=== PATIENT | male | born 1960 | race Caucasian/White ===

== ENCOUNTER 2024-08-27 08:45 | Inpatient (IN) | payer BC, MEDICAID, MEDICARE ==
[~2024-08-27] VITALS: Ht 180.3 cm; Wt 85.7 kg
[2024-08-27] VITALS (11 sets, daily range): BP systolic 122–134; BP diastolic 41–66; PULSE 36–98; RESP 18–28; TEMP 37.05852; O2SAT 98–100
[2024-08-27] MEDS ORDERED: FENTANYL 2500MCG/250ML PMX 250 ML IV ONE (09:00)
[2024-08-27] MEDS ORDERED: VANCOMYCIN 1000MG/250ML 250 ML IV SCH ×2 (09:00)
[2024-08-27] MEDS ORDERED: MIDAZOLAM 100MG/100ML PMX 100 ML IV PRN (09:00)
[2024-08-27] MEDS ORDERED: CEFEPIME 2GM IN DEXT 5% 100ML IV ONE (09:00)
[2024-08-27] MEDS: CEFEPIME 2GM/50ML DUPLEX 50 ML IV SCH (09:51)
[2024-08-27] MEDS: CALCIUM GLUCONATE 100MG/ML 10ML VIAL IV ONE ×4 (09:51→11:29)
[2024-08-27 09:54] LABS: HEMATOCRIT. 37.9 % (42.0-52.0); HEMOGLOBIN. 11.7 g/dL (14.0-18.0); PLATELET 414 x1000/uL (130-400); RED BLOOD CELL COUNT 3.79 mill/uL (4.7-6.1); RED CELL DISTRIBUTION WIDTH 19.5 % (11.6-14.6); WHITE BLOOD COUNT 17.8 x1000/uL (4.5-11.0)
[2024-08-27 09:58] LABS: CHLORIDE 106 mEq/L (98-107); SODIUM 133 mEq/L (136-145)
[2024-08-27 10:00] LABS: CALCIUM 9.9 mg/dL (8.7-10.4)
[2024-08-27] MEDS ORDERED: EPINEPHRINE 5 MG in SODIUM CHLORIDE 0.9% 245 ML IV STA (10:00)
[2024-08-27 10:04] LABS: GLUCOSE 123 mg/dL (70-105)
[2024-08-27 10:05] LABS: TROPONIN I HIGH SENSITIVITY 36 ng/L (3.0-53)
[2024-08-27 10:06] LABS: ALANINE AMINOTRANSFERASE 27 IU/L (10-49); ALBUMIN 4.3 g/dL (3.2-4.8); ASPARTATE AMINOTRANSFERASE 19 IU/L (<34)
[2024-08-27 10:07] LABS: BILIRUBIN TOTAL < 0.2 mg/dL (0.1-1.0); PROTEIN TOTAL 6.5 g/dL (6.0-8.3)
[2024-08-27 10:14] LABS: DIFFERENTIAL COMMENT 1
[2024-08-27] MEDS: FENTANYL CITRATE 1,000 MCG in SODIUM CHLORIDE 0.9% 80 ML IV PRN (10:14)
[2024-08-27] MEDS: MIDAZOLAM 100MG/100ML PMX 100 ML IV PRN (10:14)
[2024-08-27 10:54] LABS: POTASSIUM 8.1 mEq/L (3.5-5.1)
[2024-08-27 10:55] LABS: CARBON DIOXIDE < 10 mEq/L (21-32); UREA NITROGEN BLOOD 154 mg/dL (9-23)
[2024-08-27 10:56] LABS: BILIRUBIN DIRECT < 0.1 mg/dL (<=3.0); CREATININE 15.8 mg/dL (0.6-1.3)
[2024-08-27 11:03] LABS: ANISOCYTOSIS 1+; PLATELET ESTIMATE SLIGHTLY INCREASED
[2024-08-27] MEDS: EPINEPHRINE 5 MG in SODIUM CHLORIDE 0.9% 245 ML IV PRN (11:03)
[2024-08-27] MEDS: CALCIUM GLUCONATE 100MG/ML 10ML VIAL IV NR ×2 (11:28)
[2024-08-27] MEDS: DEXTROSE 50% WATER 50ML SYRINGE IV ONE (11:29)
[2024-08-27] MEDS: INSULIN REGULAR (HUMULIN R) 1000UNITS/10ML VIAL IV ONE (11:30)
[2024-08-27] MEDS: VANCOMYCIN 1.5GM/250ML IV NR (11:33)
[2024-08-27] MEDS ORDERED: MANNITOL 20% (20GM/100ML) BAG 500ML PREMIX IV ONE (11:45)
[2024-08-27] MEDS ORDERED: IPRATROPIUM/ALBUTEROL 0.5-3(2.5)MG/3ML NEB HHN PRN (12:00)
[2024-08-27] MEDS ORDERED: ACETAMINOPHEN 325MG TABLET PO PRN ×2 (12:00)
[2024-08-27] MEDS ORDERED: CEFEPIME 2GM IN DEXT 5% 100ML IV SCH (12:00)
[2024-08-27] MEDS ORDERED: ONDANSETRON HCL 4MG/2ML INJ IV PRN (12:00)
[2024-08-27 12:16] LABS: TROPONIN I HIGH SENSITIVITY 43 ng/L (3.0-53)
[2024-08-27] MEDS ORDERED: ATROPINE SULFATE 1MG/ML VIAL IV PRN (12:45)
[2024-08-27] MEDS ORDERED: DOPAMINE 800MG PREMIX (DOUBLE) 250 ML IV PRN (12:45)
[2024-08-27] MEDS: MANNITOL 20% 250 ML IV NR (12:51)
[2024-08-27] MEDS: DEXT 5%/0.45% NACL 1000ML 1,000 ML IV SCH (12:51)
[2024-08-27 13:00] LABS: BG BASE EXCESS -28.3 mmol/L (-2.0-3.0); BG CARBOXYHEMOGLOBIN 1.5 % (0.5-1.5); BG FRACTION INSPIRED OXYGEN 100; BG HCO3 ACT 5.3 mmol/L (21.0-28.0); BG METHEMOGLOBIN 0.3 % (0.5-1.5); BG OXYHEMOGLOBIN 98.2 % (94.0-98.0); BG PCO2 33.5 mmHg (35.0-48.0); BG PH 6.818 (7.350-7.450); BG SAMPLE SITE RIGHT RADIAL; BG TOTAL HEMOGLOBIN 12.4 g/dL (13.5-17.5); BG VENT MODE VENT - AC
[2024-08-27] MEDS: DOPAMINE 800MG PREMIX (DOUBLE) 250 ML IV PRN (13:36)
[2024-08-27] MEDS: ENOXAPARIN 30MG/0.3ML SYR SUBCUT SCH (14:38)
[2024-08-27] MEDS: SODIUM BICARBONATE 8.4% 50MEQ/50ML SYR IV NR ×2 (14:38→23:58)
[2024-08-27 15:18] LABS: IRON 81 ug/dL (65-175)
[2024-08-27 15:19] LABS: TRIGLYCERIDE 256 mg/dL (0-150)
[2024-08-27 15:20] LABS: LDL CHOLESTEROL 53 mg/dL (5-100)
[2024-08-27 15:21] LABS: CHOLESTEROL 115 mg/dL (<200); HDL CHOLESTEROL < 20 mg/dL (>55); TOTAL IRON BINDING CAPACITY 433 ug/dl (250-425)
[2024-08-27 15:35] LABS: FOLIC ACID (FOLATE) SERUM 14.06 ng/mL (>5.38); VITAMIN B12 SERUM 1457 pg/mL (211-911)
[2024-08-27 20:44] LABS: CHLORIDE 105 mEq/L (98-107); POTASSIUM 3.6 mEq/L (3.5-5.1); SODIUM 136 mEq/L (136-145)
[2024-08-27 20:45] LABS: CALCIUM 9.2 mg/dL (8.7-10.4); CARBON DIOXIDE 14 mEq/L (21-32)
[2024-08-27 20:50] LABS: GLUCOSE 136 mg/dL (70-105); UREA NITROGEN BLOOD 84 mg/dL (9-23)
[2024-08-27 21:26] LABS: BG BASE EXCESS -15.2 mmol/L (-2.0-3.0); BG CARBOXYHEMOGLOBIN 1.3 % (0.5-1.5); BG FRACTION INSPIRED OXYGEN 100; BG HCO3 ACT 12.9 mmol/L (21.0-28.0); BG METHEMOGLOBIN 0.3 % (0.5-1.5); BG OXYHEMOGLOBIN 95.4 % (94.0-98.0); BG PCO2 38.3 mmHg (35.0-48.0); BG PH 7.146 (7.350-7.450); BG PO2 102.7 mmHg (83.0-108.0); BG SAMPLE SITE RIGHT RADIAL; BG TOTAL RESPIRATORY RATE 19 b/min; BG VENT MODE VENT - AC
[2024-08-27 23:03] LABS: CREATININE 9.1 mg/dL (0.6-1.3)
[2024-08-27] MEDS: SEVELAMER CARBONATE 800 MG TABLET PO SCH (23:15)
[2024-08-27] MEDS ORDERED: SODIUM BICARBONATE 8.4% 50MEQ/50ML SYR IV ONE (23:15)
[2024-08-27] MEDS ORDERED: EPINEPHRINE 5 MG in DEXT 5% WATER 245 ML IV PRN (23:45)
[2024-08-28] VITALS (52 sets, daily range): BP systolic 117–176; BP diastolic 62–132; PULSE 74–99; RESP 14–28; TEMP 36.44736–36.9474; O2SAT 98–100
[2024-08-28 00:40] LABS: BG BASE EXCESS -9.5 mmol/L (-2.0-3.0); BG CARBOXYHEMOGLOBIN 1.5 % (0.5-1.5); BG DEOXYHEMOGLOBIN 1.5 % (0.0-5.0); BG FRACTION INSPIRED OXYGEN 100; BG HCO3 ACT 17.5 mmol/L (21.0-28.0); BG METHEMOGLOBIN 0.3 % (0.5-1.5); BG OXYGEN SATURATION 98.5 % (94.0-98.0); BG OXYHEMOGLOBIN 96.7 % (94.0-98.0); BG PCO2 42.3 mmHg (35.0-48.0); BG PH 7.234 (7.350-7.450); BG PO2 119.3 mmHg (83.0-108.0); BG SAMPLE SITE RIGHT RADIAL; BG TOTAL HEMOGLOBIN 12.5 g/dL (13.5-17.5); BG TOTAL RESPIRATORY RATE 18 b/min; BG VENT MODE VENT - AC
[2024-08-28 01:26] LABS: HEMATOCRIT 37.2 % (42.0-52.0); HEMOGLOBIN 12.4 g/dL (14.0-18.0); MEAN CORPUSCULAR HEMOGLOBIN 30.8 pg (28.0-32.0); MEAN CORPUSCULAR HGB CONC 33.2 g/dL (31.0-37.0); MEAN CORPUSCULAR VOLUME 92.6 fL (80.0-94.0); PLATELET 329 x1000/uL (130-400); RED BLOOD CELL COUNT 4.02 mill/uL (4.7-6.1); WHITE BLOOD COUNT 8.9 x1000/uL (4.5-11.0)
[2024-08-28 01:32] LABS: CHLORIDE 103 mEq/L (98-107); POTASSIUM 3.9 mEq/L (3.5-5.1); SODIUM 138 mEq/L (136-145)
[2024-08-28 01:33] LABS: CARBON DIOXIDE 18 mEq/L (21-32)
[2024-08-28 01:38] LABS: GLUCOSE 69 mg/dL (70-105); UREA NITROGEN BLOOD 90 mg/dL (9-23)
[2024-08-28 01:39] LABS: CREATINE KINASE MB FRACTION 12.1 ng/mL (0.5-3.6)
[2024-08-28 01:40] LABS: CREATINE KINASE 188 IU/L (46-171)
[2024-08-28 01:43] LABS: T4 FREE 1.36 ng/dL (0.89-1.76)
[2024-08-28 02:31] LABS: CREATININE 9.7 mg/dL (0.6-1.3); PHOSPHORUS 10.1 mg/dL (2.5-4.9); TROPONIN I HIGH SENSITIVITY 169 ng/L (3.0-53)
[2024-08-28] MEDS: DEXTROSE 50% WATER 50ML SYRINGE IV NR (07:15)
[2024-08-28] MEDS: ASPIRIN 81MG TABLET PO SCH (08:16)
[2024-08-28] MEDS: CEFEPIME 2GM/50ML DUPLEX 50 ML IV SCH (08:47)
[2024-08-28 10:42] LABS: CHLORIDE 103 mEq/L (98-107); POTASSIUM 4.1 mEq/L (3.5-5.1); SODIUM 138 mEq/L (136-145)
[2024-08-28 10:43] LABS: CARBON DIOXIDE 17 mEq/L (21-32)
[2024-08-28] MEDS: IPRATROPIUM/ALBUTEROL 0.5-3(2.5)MG/3ML NEB HHN SCH (12:20)
[2024-08-28 12:37] LABS: CHLORIDE 105 mEq/L (98-107); POTASSIUM 4.1 mEq/L (3.5-5.1); SODIUM 139 mEq/L (136-145)
[2024-08-28 12:38] LABS: CALCIUM 9.1 mg/dL (8.7-10.4); CARBON DIOXIDE 17 mEq/L (21-32)
[2024-08-28 12:43] LABS: GLUCOSE 104 mg/dL (70-105)
[2024-08-28 12:49] LABS: HEMATOCRIT. 40.7 % (42.0-52.0); HEMOGLOBIN. 13.4 g/dL (14.0-18.0); MEAN CORPUSCULAR HEMOGLOBIN 30.5 pg (28.0-32.0); MEAN CORPUSCULAR HGB CONC 32.8 g/dL (31.0-37.0); MEAN CORPUSCULAR VOLUME 92.9 fL (80.0-94.0); MEAN PLATELET VOLUME 8.1 fl (7.4-10.4); PLATELET 312 x1000/uL (130-400); RED BLOOD CELL COUNT 4.38 mill/uL (4.7-6.1); RED CELL DISTRIBUTION WIDTH 18.3 % (11.6-14.6); WHITE BLOOD COUNT 12.5 x1000/uL (4.5-11.0)
[2024-08-28 12:50] LABS: DIFFERENTIAL COMMENT 1
[2024-08-28 13:08] LABS: CREATININE 10.4 mg/dL (0.6-1.3); UREA NITROGEN BLOOD 103 mg/dL (9-23)
[2024-08-28] MEDS: DEXTROSE 50% WATER 50ML SYRINGE IV PRN (13:50)
[2024-08-28 14:13] LABS: BG BASE EXCESS -13.5 mmol/L (-2.0-3.0); BG CARBOXYHEMOGLOBIN 1.5 % (0.5-1.5); BG DEOXYHEMOGLOBIN 0.8 % (0.0-5.0); BG FRACTION INSPIRED OXYGEN 100; BG HCO3 ACT 13.2 mmol/L (21.0-28.0); BG METHEMOGLOBIN 0.3 % (0.5-1.5); BG OXYGEN SATURATION 99.2 % (94.0-98.0); BG OXYHEMOGLOBIN 97.4 % (94.0-98.0); BG PCO2 33.6 mmHg (35.0-48.0); BG PH 7.212 (7.350-7.450); BG PO2 158.4 mmHg (83.0-108.0); BG SAMPLE SITE RIGHT BRACHIAL; BG TOTAL HEMOGLOBIN 12.8 g/dL (13.5-17.5); BG VENT MODE VENT - AC
[2024-08-28 14:14] LABS: PHOSPHORUS 10.6 mg/dL (2.5-4.9)
[2024-08-28] MEDS ORDERED: SEVELAMER CARBONATE 800 MG TABLET PO SCH (14:45)
[2024-08-28 15:01] LABS: TROPONIN I HIGH SENSITIVITY 130 ng/L (3.0-53)
[2024-08-28 15:12] LABS: HEMOGLOBIN 12.5 g/dL (14.0-18.0); MEAN CORPUSCULAR HEMOGLOBIN 30.2 pg (28.0-32.0); MEAN CORPUSCULAR HGB CONC 32.1 g/dL (31.0-37.0); MEAN CORPUSCULAR VOLUME 94.2 fL (80.0-94.0); PLATELET 330 x1000/uL (130-400); RED BLOOD CELL COUNT 4.14 mill/uL (4.7-6.1); RED CELL DISTRIBUTION WIDTH 18.6 % (11.6-14.6); WHITE BLOOD COUNT 10.4 x1000/uL (4.5-11.0)
[2024-08-28] MEDS: SODIUM BICARBONATE 8.4% 50MEQ/50ML SYR IV NR (15:52)
[2024-08-28] MEDS: PANTOPRAZOLE SODIUM 40 MG/VIAL IV SCH (15:52)
[2024-08-28 17:19] LABS: ANISOCYTOSIS 1+; PLATELET ESTIMATE NORMAL
[2024-08-28 21:14] LABS: CLARITY URINE TURBID (CLEAR); COLOR URINE YELLOW (YELLOW); GLUCOSE URINE TRACE (NEGATIVE); KETONES URINE NEGATIVE (NEGATIVE); LEUKOCYTE ESTERASE URINE 1+ (NEGATIVE); NITRITE URINE NEGATIVE (NEGATIVE); OCCULT BLOOD URINE 2+ (NEGATIVE); PROTEIN URINE 3+ (NEGATIVE); SPECIFIC GRAVITY URINE 1.018 (1.005-1.030); UROBILINOGEN URINE 0.2 E.U./dL (0.2-1.0)
[2024-08-28] MEDS: ATORVASTATIN CALCIUM 20MG TABLET PO SCH (21:16)
[2024-08-28 21:28] LABS: BACTERIA URINE 1+; RBC URINE 0-2 /hpf (0-2); SQUAMOUS EPITHELIAL CELL URINE FEW /lpf (RARE/1+); WBC URINE 0-2 /hpf (0-2)
[2024-08-28] MEDS: CLONIDINE 0.1MG TABLET PO PRN (23:20)
[2024-08-29] VITALS (105 sets, daily range): BP systolic 114–179; BP diastolic 56–124; PULSE 72–110; RESP 14–36; TEMP 36.6696–37.44744; O2SAT 98–100
[2024-08-29 00:17] LABS: TROPONIN I HIGH SENSITIVITY 181 ng/L (3.0-53)
[2024-08-29] MEDS ORDERED: DEXMEDETOMIDINE 400 MCG/100 ML 100 ML IV PRN (02:45)
[2024-08-29] MEDS: DEXMEDETOMIDINE 400 MCG/100 ML 100 ML IV PRN (03:03)
[2024-08-29 04:11] LABS: BG BASE EXCESS -9.4 mmol/L (-2.0-3.0); BG FRACTION INSPIRED OXYGEN 100; BG HCO3 ACT 16.1 mmol/L (21.0-28.0); BG METHEMOGLOBIN 0.3 % (0.5-1.5); BG OXYHEMOGLOBIN 96.7 % (94.0-98.0); BG PCO2 33.8 mmHg (35.0-48.0); BG PH 7.296 (7.350-7.450); BG PO2 110.4 mmHg (83.0-108.0); BG SAMPLE SITE LEFT BRACHIAL; BG VENT MODE VENT - AC
[2024-08-29 06:18] LABS: CARBON DIOXIDE 14 mEq/L (21-32); CHLORIDE 105 mEq/L (98-107); POTASSIUM 4.8 mEq/L (3.5-5.1); SODIUM 137 mEq/L (136-145)
[2024-08-29 06:19] LABS: CALCIUM 9.3 mg/dL (8.7-10.4)
[2024-08-29 06:24] LABS: GLUCOSE 107 mg/dL (70-105)
[2024-08-29 06:36] LABS: UREA NITROGEN BLOOD 92 mg/dL (9-23)
[2024-08-29 06:42] LABS: HEMATOCRIT. 34.8 % (42.0-52.0); HEMOGLOBIN. 11.6 g/dL (14.0-18.0); MEAN CORPUSCULAR HEMOGLOBIN 31.1 pg (28.0-32.0); MEAN CORPUSCULAR HGB CONC 33.3 g/dL (31.0-37.0); MEAN CORPUSCULAR VOLUME 93.3 fL (80.0-94.0); RED BLOOD CELL COUNT 3.73 mill/uL (4.7-6.1); RED CELL DISTRIBUTION WIDTH 18.4 % (11.6-14.6); WHITE BLOOD COUNT 9.3 x1000/uL (4.5-11.0)
[2024-08-29 07:00] LABS: DIFFERENTIAL COMMENT 1
[2024-08-29 07:40] LABS: TROPONIN I HIGH SENSITIVITY 232 ng/L (3.0-53)
[2024-08-29 07:41] LABS: CREATININE 11.3 mg/dL (0.6-1.3)
[2024-08-29 07:42] LABS: PHOSPHORUS 10.3 mg/dL (2.5-4.9)
[2024-08-29] MEDS ORDERED: DEXTROSE 50% WATER 50ML SYRINGE IV PRN (08:00)
[2024-08-29] MEDS: CEFEPIME 1GM PREMIX 50ML IV SCH (08:59)
[2024-08-29 09:32] LABS: PLATELET 316 x1000/uL (130-400)
[2024-08-29 09:34] LABS: ANISOCYTOSIS 2+; PLATELET ESTIMATE NORMAL
[2024-08-29] MEDS: INSULIN LISPRO 100 UNITS/ML SUBCUT SCH (12:00)
[2024-08-29] MEDS: BLOOD SUGAR DIAGNOSTIC STRIP TEST SCH (12:00)
[2024-08-29] MEDS: LIDOCAINE HCL 1% 10 MG/ML 10ML VIAL ONE ×2 (12:42→13:10)
[2024-08-29 15:37] LABS: BG BASE EXCESS -3.3 mmol/L (-2.0-3.0); BG CARBOXYHEMOGLOBIN 1.6 % (0.5-1.5); BG FRACTION INSPIRED OXYGEN 60; BG HCO3 ACT 20.1 mmol/L (21.0-28.0); BG METHEMOGLOBIN 0.3 % (0.5-1.5); BG OXYHEMOGLOBIN 96.1 % (94.0-98.0); BG PCO2 30.8 mmHg (35.0-48.0); BG PH 7.433 (7.350-7.450); BG PO2 103.6 mmHg (83.0-108.0); BG SAMPLE SITE RIGHT RADIAL; BG TOTAL HEMOGLOBIN 10.9 g/dL (13.5-17.5); BG VENT MODE VENT - AC
[2024-08-29 17:20] LABS: DIFFERENTIAL COMMENT 1; HEMOGLOBIN. 11.2 g/dL (14.0-18.0); MEAN CORPUSCULAR HEMOGLOBIN 30.4 pg (28.0-32.0); MEAN PLATELET VOLUME 7.8 fl (7.4-10.4); PLATELET 321 x1000/uL (130-400); RED CELL DISTRIBUTION WIDTH 18.9 % (11.6-14.6)
[2024-08-29 17:23] LABS: CHLORIDE 106 mEq/L (98-107); POTASSIUM 3.7 mEq/L (3.5-5.1); SODIUM 145 mEq/L (136-145)
[2024-08-29 17:24] LABS: CALCIUM 9.8 mg/dL (8.7-10.4); CARBON DIOXIDE 25 mEq/L (21-32)
[2024-08-29 17:29] LABS: GLUCOSE 89 mg/dL (70-105); UREA NITROGEN BLOOD 75 mg/dL (9-23)
[2024-08-29 17:31] LABS: PHOSPHORUS 7.7 mg/dL (2.5-4.9)
[2024-08-29 17:34] LABS: CREATININE 8.6 mg/dL (0.6-1.3); TROPONIN I HIGH SENSITIVITY 184 ng/L (3.0-53)
[2024-08-29] MEDS: VANCOMYCIN 750MG PMX (XELLIA) 150 ML IV NR (17:36)
[2024-08-29 18:02] LABS: PLATELET ESTIMATE NORMAL
[2024-08-29 20:19] LABS: BG BASE EXCESS -3.1 mmol/L (-2.0-3.0); BG CARBOXYHEMOGLOBIN 0.9 % (0.5-1.5); BG DEOXYHEMOGLOBIN 1.5 % (0.0-5.0); BG FRACTION INSPIRED OXYGEN 60; BG HCO3 ACT 20.2 mmol/L (21.0-28.0); BG METHEMOGLOBIN 0.3 % (0.5-1.5); BG OXYGEN SATURATION 98.5 % (94.0-98.0); BG OXYHEMOGLOBIN 97.3 % (94.0-98.0); BG PCO2 30.4 mmHg (35.0-48.0); BG PO2 117.8 mmHg (83.0-108.0); BG SAMPLE SITE RIGHT RADIAL; BG TOTAL HEMOGLOBIN 11.4 g/dL (13.5-17.5); BG VENT MODE VENT - AC
[2024-08-29] MEDS: PROPOFOL 10MG/ML 100ML 100 ML IV PRN (20:28)
[2024-08-30] VITALS (104 sets, daily range): BP systolic 147–197; BP diastolic 67–143; PULSE 63–102; RESP 14–40; TEMP 36.72516–37.61412; O2SAT 95–100
[2024-08-30 04:04] LABS: BASOPHILS % 0.4 % (0.0-2.0); HEMATOCRIT. 32.3 % (42.0-52.0); HEMOGLOBIN. 10.7 g/dL (14.0-18.0); LYMPHOCYTES % 3.6 % (20.0-50.0); MEAN CORPUSCULAR HEMOGLOBIN 30.8 pg (28.0-32.0); MEAN CORPUSCULAR HGB CONC 33.1 g/dL (31.0-37.0); MEAN CORPUSCULAR VOLUME 93.1 fL (80.0-94.0); MEAN PLATELET VOLUME 8.1 fl (7.4-10.4); MONOCYTES % 10.5 % (2.0-8.0); NEUTROPHILS % 85.5 % (40.0-76.0); PLATELET 311 x1000/uL (130-400); RED BLOOD CELL COUNT 3.47 mill/uL (4.7-6.1); RED CELL DISTRIBUTION WIDTH 18.8 % (11.6-14.6); WHITE BLOOD COUNT 10.4 x1000/uL (4.5-11.0)
[2024-08-30 04:11] LABS: DIFFERENTIAL COMMENT 1
[2024-08-30 04:13] LABS: AMMONIA < 17 uMol/L (<32)
[2024-08-30 04:16] LABS: CLARITY URINE CLOUDY (CLEAR); COLOR URINE YELLOW (YELLOW); GLUCOSE URINE NEGATIVE (NEGATIVE); KETONES URINE NEGATIVE (NEGATIVE); LEUKOCYTE ESTERASE URINE 1+ (NEGATIVE); NITRITE URINE NEGATIVE (NEGATIVE); OCCULT BLOOD URINE 3+ (NEGATIVE); PROTEIN URINE 3+ (NEGATIVE); SPECIFIC GRAVITY URINE 1.016 (1.005-1.030); UROBILINOGEN URINE 0.2 E.U./dL (0.2-1.0)
[2024-08-30 04:23] LABS: *AMPHETAMINES SCREEN URINE NEGATIVE (NEGATIVE); *BARBITURATES SCREEN URINE NEGATIVE (NEGATIVE); *BENZODIAZEPINES SCREEN URINE PRESUMPTIVE POSITIVE (NEGATIVE); *COCAINE SCREEN URINE NEGATIVE (NEGATIVE); METHADONE URINE SCREEN NEGATIVE (NEGATIVE)
[2024-08-30 04:24] LABS: CANNABINOID URINE SCREEN PRESUMPTIVE POSITIVE (NEGATIVE); ECSTASY MDMA SCREEN URINE NEGATIVE (NEGATIVE); OPIATES URINE SCREEN NEGATIVE (NEGATIVE); PHENCYCLIDINE URINE SCREEN NEGATIVE (NEGATIVE)
[2024-08-30 04:30] LABS: HEPATITIS B SURFACE ANTIGEN NEGATIVE (Negative)
[2024-08-30 04:50] LABS: HEPATITIS A AB IGM NEGATIVE (Negative)
[2024-08-30 04:51] LABS: HEPATITIS B CORE AB IGM NEGATIVE (Negative)
[2024-08-30 04:52] LABS: HEPATITIS C AB REACTIVE (Pos) (Negative)
[2024-08-30 05:03] LABS: WBC URINE 0-2 /hpf (0-2)
[2024-08-30 05:04] LABS: BACTERIA URINE 2+; RBC URINE 15-25 /hpf (0-2); SQUAMOUS EPITHELIAL CELL URINE FEW /lpf (RARE/1+)
[2024-08-30] MEDS: FOLIC ACID/VITAMIN B COMP W-C TABLET PO SCH (09:04)
[2024-08-30] MEDS: HALOPERIDOL LACTATE 5MG/ML VIAL IM PRN (11:10)
[2024-08-30] MEDS: AMLODIPINE 10MG TABLET PO NR (11:16)
[2024-08-30 11:21] LABS: BG BASE EXCESS -5.7 mmol/L (-2.0-3.0); BG CARBOXYHEMOGLOBIN 1.6 % (0.5-1.5); BG DEOXYHEMOGLOBIN 0.4 % (0.0-5.0); BG FRACTION INSPIRED OXYGEN 40; BG HCO3 ACT 17.7 mmol/L (21.0-28.0); BG METHEMOGLOBIN 0.3 % (0.5-1.5); BG OXYGEN SATURATION 99.6 % (94.0-98.0); BG OXYHEMOGLOBIN 97.7 % (94.0-98.0); BG PCO2 27.7 mmHg (35.0-48.0); BG PH 7.423 (7.350-7.450); BG PO2 172.9 mmHg (83.0-108.0); BG SAMPLE SITE RIGHT RADIAL; BG TOTAL HEMOGLOBIN 9.7 g/dL (13.5-17.5); BG VENT MODE VENT - AC
[2024-08-30] MEDS: LORAZEPAM 2MG/ML INJ IV NR (11:43)
[2024-08-30] MEDS: HYDRALAZINE 20MG/ML VIAL IV PRN (13:25)
[2024-08-30 17:14] LABS: BG BASE EXCESS -4.3 mmol/L (-2.0-3.0); BG CARBOXYHEMOGLOBIN 1.2 % (0.5-1.5); BG DEOXYHEMOGLOBIN 3.4 % (0.0-5.0); BG FRACTION INSPIRED OXYGEN 40; BG HCO3 ACT 18.3 mmol/L (21.0-28.0); BG METHEMOGLOBIN 0.3 % (0.5-1.5); BG OXYGEN SATURATION 96.5 % (94.0-98.0); BG OXYHEMOGLOBIN 95.1 % (94.0-98.0); BG PCO2 26.1 mmHg (35.0-48.0); BG PH 7.464 (7.350-7.450); BG SAMPLE SITE RIGHT RADIAL; BG TOTAL HEMOGLOBIN 10.2 g/dL (13.5-17.5); BG VENT MODE VENT - SIMV
[2024-08-30] MEDS: MUPIROCIN 2% OINT 15GM TOP SCH (17:14)
[2024-08-30 19:00] LABS: CARBON DIOXIDE 21 mEq/L (21-32); CHLORIDE 106 mEq/L (98-107); POTASSIUM 3.7 mEq/L (3.5-5.1); SODIUM 144 mEq/L (136-145)
[2024-08-30 19:01] LABS: CALCIUM 9.7 mg/dL (8.7-10.4)
[2024-08-30 19:05] LABS: GLUCOSE 125 mg/dL (70-105); IRON 22 ug/dL (65-175)
[2024-08-30 19:06] LABS: UREA NITROGEN BLOOD 93 mg/dL (9-23)
[2024-08-30 19:08] LABS: PHOSPHORUS 7.3 mg/dL (2.5-4.9)
[2024-08-30 19:35] LABS: CREATININE 9.5 mg/dL (0.6-1.3); TOTAL IRON BINDING CAPACITY > 670 ug/dl (250-425)
[2024-08-30] MEDS ORDERED: HYDRALAZINE 20MG/ML VIAL IV PRN (20:45)
[2024-08-30 21:21] LABS: BG BASE EXCESS -3.7 mmol/L (-2.0-3.0); BG CARBOXYHEMOGLOBIN 1.2 % (0.5-1.5); BG DEOXYHEMOGLOBIN 2.3 % (0.0-5.0); BG FRACTION INSPIRED OXYGEN 40; BG HCO3 ACT 20.3 mmol/L (21.0-28.0); BG METHEMOGLOBIN 0.3 % (0.5-1.5); BG OXYGEN SATURATION 97.7 % (94.0-98.0); BG OXYHEMOGLOBIN 96.2 % (94.0-98.0); BG PCO2 32.7 mmHg (35.0-48.0); BG PO2 101.2 mmHg (83.0-108.0); BG SAMPLE SITE RIGHT RADIAL; BG TOTAL HEMOGLOBIN 10.4 g/dL (13.5-17.5); BG VENT MODE VENT - SIMV
[2024-08-31] VITALS (91 sets, daily range): BP systolic 114–176; BP diastolic 51–104; PULSE 60–95; RESP 11–39; TEMP 36.78072–37.2252; O2SAT 93–100
[2024-08-31] MEDS: METHYLPREDNISOLONE SOD SUCC 40MG/ML (ACT-O-VIAL) IV NR
[2024-08-31] MEDS: PROPOFOL 10MG/ML 100ML 100 ML IV PRN (00:18)
[2024-08-31 06:47] LABS: CARBON DIOXIDE 19 mEq/L (21-32); CHLORIDE 105 mEq/L (98-107); POTASSIUM 4.2 mEq/L (3.5-5.1); SODIUM 143 mEq/L (136-145)
[2024-08-31 06:48] LABS: CALCIUM 9.9 mg/dL (8.7-10.4)
[2024-08-31 06:52] LABS: HEMATOCRIT. 33.4 % (42.0-52.0); HEMOGLOBIN. 10.6 g/dL (14.0-18.0); MEAN CORPUSCULAR HEMOGLOBIN 29.6 pg (28.0-32.0); MEAN CORPUSCULAR HGB CONC 31.8 g/dL (31.0-37.0); MEAN CORPUSCULAR VOLUME 93.1 fL (80.0-94.0); MEAN PLATELET VOLUME 8.2 fl (7.4-10.4); PLATELET 372 x1000/uL (130-400); RED BLOOD CELL COUNT 3.59 mill/uL (4.7-6.1); RED CELL DISTRIBUTION WIDTH 18.8 % (11.6-14.6); WHITE BLOOD COUNT 12.7 x1000/uL (4.5-11.0)
[2024-08-31 06:53] LABS: GLUCOSE 139 mg/dL (70-105); TRIGLYCERIDE 267 mg/dL (0-150); UREA NITROGEN BLOOD 97 mg/dL (9-23)
[2024-08-31 07:10] LABS: DIFFERENTIAL COMMENT 1
[2024-08-31 09:02] LABS: CREATININE 10.2 mg/dL (0.6-1.3)
[2024-08-31 09:30] LABS: BG BASE EXCESS -4.9 mmol/L (-2.0-3.0); BG CARBOXYHEMOGLOBIN 1.6 % (0.5-1.5); BG DEOXYHEMOGLOBIN 1.1 % (0.0-5.0); BG FRACTION INSPIRED OXYGEN 40; BG HCO3 ACT 19.2 mmol/L (21.0-28.0); BG METHEMOGLOBIN 0.3 % (0.5-1.5); BG OXYGEN SATURATION 98.9 % (94.0-98.0); BG PH 7.397 (7.350-7.450); BG PO2 128.9 mmHg (83.0-108.0); BG SAMPLE SITE ALINE; BG TOTAL HEMOGLOBIN 9.7 g/dL (13.5-17.5); BG VENT MODE VENT - SIMV
[2024-08-31] MEDS: NIFEDIPINE XL 30MG TAB PO SCH (10:19)
[2024-08-31 14:03] LABS: BG BASE EXCESS -6.8 mmol/L (-2.0-3.0); BG CARBOXYHEMOGLOBIN 1.2 % (0.5-1.5); BG DEOXYHEMOGLOBIN 4.3 % (0.0-5.0); BG FRACTION INSPIRED OXYGEN 40; BG HCO3 ACT 16.5 mmol/L (21.0-28.0); BG METHEMOGLOBIN 0.2 % (0.5-1.5); BG OXYGEN SATURATION 95.6 % (94.0-98.0); BG OXYHEMOGLOBIN 94.3 % (94.0-98.0); BG PCO2 26.1 mmHg (35.0-48.0); BG PH 7.419 (7.350-7.450); BG PO2 82.6 mmHg (83.0-108.0); BG SAMPLE SITE LEFT RADIAL; BG TOTAL HEMOGLOBIN 10.1 g/dL (13.5-17.5); BG VENT MODE VENT - CPAP
[2024-08-31] MEDS: CLONIDINE 0.2MG TABLET NG SCH (19:04)
[2024-09-01] VITALS (58 sets, daily range): BP systolic 135–179; BP diastolic 64–96; PULSE 85–104; RESP 13–27; TEMP 36.44736–37.503; O2SAT 83–99
[2024-09-01] MEDS: HYDRALAZINE HCL 50MG TABLET PO SCH (00:15)
[2024-09-01 10:16] LABS: HEMATOCRIT. 32.7 % (42.0-52.0); HEMOGLOBIN. 10.7 g/dL (14.0-18.0); MEAN CORPUSCULAR HEMOGLOBIN 30.3 pg (28.0-32.0); MEAN CORPUSCULAR HGB CONC 32.6 g/dL (31.0-37.0); MEAN PLATELET VOLUME 8.3 fl (7.4-10.4); PLATELET 428 x1000/uL (130-400); RED BLOOD CELL COUNT 3.52 mill/uL (4.7-6.1); RED CELL DISTRIBUTION WIDTH 18.5 % (11.6-14.6); WHITE BLOOD COUNT 18.3 x1000/uL (4.5-11.0)
[2024-09-01 10:19] LABS: POTASSIUM 3.6 mEq/L (3.5-5.1)
[2024-09-01 10:23] LABS: DIFFERENTIAL COMMENT 1
[2024-09-01 10:43] LABS: CREATININE 9.1 mg/dL (0.6-1.3)
[2024-09-01 13:13] LABS: ANISOCYTOSIS 1+; PLATELET ESTIMATE INCREASED
[2024-09-01 17:42] LABS: ANISOCYTOSIS 1+; PLATELET ESTIMATE NORMAL
[2024-09-02] VITALS (12 sets, daily range): BP systolic 141–164; BP diastolic 74–89; PULSE 87–97; RESP 17–37; TEMP 36.55848–37.72524; O2SAT 83–98
[2024-09-02] MEDS: POTASSIUM CHLORIDE 20MEQ/PACKET PO NR (01:34)
[2024-09-02 03:07] LABS: CALCIUM 9.8 mg/dL (8.7-10.4); CHLORIDE 103 mEq/L (98-107); POTASSIUM 4.6 mEq/L (3.5-5.1); SODIUM 139 mEq/L (136-145)
[2024-09-02 03:08] LABS: CARBON DIOXIDE 21 mEq/L (21-32)
[2024-09-02 03:13] LABS: GLUCOSE 88 mg/dL (70-105); UREA NITROGEN BLOOD 95 mg/dL (9-23)
[2024-09-02 05:05] LABS: CREATININE 9.6 mg/dL (0.6-1.3); TROPONIN I HIGH SENSITIVITY 150 ng/L (3.0-53)
[2024-09-02 12:10] LABS: HEMOGLOBIN. 9.8 g/dL (14.0-18.0); MEAN CORPUSCULAR HEMOGLOBIN 30.2 pg (28.0-32.0); MEAN CORPUSCULAR HGB CONC 32.6 g/dL (31.0-37.0); MEAN CORPUSCULAR VOLUME 92.8 fL (80.0-94.0); MEAN PLATELET VOLUME 8.1 fl (7.4-10.4); PLATELET 364 x1000/uL (130-400); RED BLOOD CELL COUNT 3.24 mill/uL (4.7-6.1); RED CELL DISTRIBUTION WIDTH 18.1 % (11.6-14.6); WHITE BLOOD COUNT 16.4 x1000/uL (4.5-11.0)
[2024-09-02 12:21] LABS: DIFFERENTIAL COMMENT 1
[2024-09-02 12:49] LABS: POTASSIUM 4.5 mEq/L (3.5-5.1)
[2024-09-02 12:50] LABS: CALCIUM 9.5 mg/dL (8.7-10.4)
[2024-09-02 12:59] LABS: CREATININE 9.8 mg/dL (0.6-1.3)
[2024-09-02 14:01] LABS: PLATELET ESTIMATE NORMAL
[2024-09-02 14:02] LABS: ANISOCYTOSIS 1+
[2024-09-03] VITALS: BP 150/69; PULSE 85; RESP 19; TEMP 36.6696; O2SAT 94
[2024-09-03 02:00] VITALS: BP 148/79; PULSE 82; RESP 18; O2SAT 94
[2024-09-03 18:47] LABS: POTASSIUM 4.6 mEq/L (3.5-5.1)
[2024-09-03 18:49] LABS: CALCIUM 9.6 mg/dL (8.7-10.4)
[2024-09-03 18:56] LABS: CREATININE 11.2 mg/dL (0.6-1.3)
[2024-09-03 18:57] LABS: BASOPHILS % 0.3 % (0.0-2.0); EOSINOPHILS % 1.4 % (0.0-5.0); HEMATOCRIT. 29.4 % (42.0-52.0); HEMOGLOBIN. 9.5 g/dL (14.0-18.0); LYMPHOCYTES % 6.1 % (20.0-50.0); MEAN CORPUSCULAR HEMOGLOBIN 30.2 pg (28.0-32.0); MEAN CORPUSCULAR HGB CONC 32.3 g/dL (31.0-37.0); MEAN CORPUSCULAR VOLUME 93.6 fL (80.0-94.0); MEAN PLATELET VOLUME 8.6 fl (7.4-10.4); MONOCYTES % 8.6 % (2.0-8.0); NEUTROPHILS % 83.6 % (40.0-76.0); PLATELET 360 x1000/uL (130-400); RED BLOOD CELL COUNT 3.14 mill/uL (4.7-6.1); RED CELL DISTRIBUTION WIDTH 17.9 % (11.6-14.6); WHITE BLOOD COUNT 16.8 x1000/uL (4.5-11.0)
[2024-09-03 19:00] LABS: DIFFERENTIAL COMMENT 1
[2024-09-03 20:00] VITALS: BP 143/62; PULSE 89; RESP 19; TEMP 36.61404; O2SAT 97
[2024-09-04] VITALS (15 sets, daily range): BP systolic 108–158; BP diastolic 68–86; PULSE 69–86; RESP 16–29; TEMP 36.114–37.11408; O2SAT 92–100
[2024-09-04 06:35] LABS: POTASSIUM 4.6 mEq/L (3.5-5.1)
[2024-09-04 06:36] LABS: CALCIUM 9.5 mg/dL (8.7-10.4)
[2024-09-04 06:57] LABS: HEMATOCRIT. 29.6 % (42.0-52.0); HEMOGLOBIN. 9.7 g/dL (14.0-18.0); MEAN CORPUSCULAR HEMOGLOBIN 30.6 pg (28.0-32.0); MEAN CORPUSCULAR HGB CONC 32.9 g/dL (31.0-37.0); MEAN PLATELET VOLUME 8.5 fl (7.4-10.4); PLATELET 358 x1000/uL (130-400); RED BLOOD CELL COUNT 3.19 mill/uL (4.7-6.1); RED CELL DISTRIBUTION WIDTH 17.6 % (11.6-14.6); WHITE BLOOD COUNT 17.3 x1000/uL (4.5-11.0)
[2024-09-04 07:11] LABS: CREATININE 11.4 mg/dL (0.6-1.3)
[2024-09-04 08:08] LABS: DIFFERENTIAL COMMENT 1
[2024-09-04] MEDS ORDERED: ATROPINE SULFATE 1MG/10ML SYR IV PRN (11:15)
[2024-09-04 12:59] LABS: BG BASE EXCESS -5.2 mmol/L (-2.0-3.0); BG CARBOXYHEMOGLOBIN 1.2 % (0.5-1.5); BG DEOXYHEMOGLOBIN 3.3 % (0.0-5.0); BG FRACTION INSPIRED OXYGEN 40; BG HCO3 ACT 18.5 mmol/L (21.0-28.0); BG METHEMOGLOBIN 0.3 % (0.5-1.5); BG OXYGEN SATURATION 96.6 % (94.0-98.0); BG OXYHEMOGLOBIN 95.2 % (94.0-98.0); BG PCO2 30.5 mmHg (35.0-48.0); BG PH 7.401 (7.350-7.450); BG PO2 90.2 mmHg (83.0-108.0); BG SAMPLE SITE RIGHT RADIAL; BG TOTAL HEMOGLOBIN 12.1 g/dL (13.5-17.5); BG VENT MODE NASAL CANNULA
[2024-09-04] MEDS: AMMONIUM LACTATE 12% LOTION 240ML TOP SCH (13:37)
[2024-09-04] MEDS: RISPERIDONE 0.5MG TABLET PO SCH (21:28)
[2024-09-04] MEDS: CLONIDINE 0.2MG TABLET PO SCH (21:32)
[2024-09-04] MEDS: LORAZEPAM 2MG/ML INJ IV PRN (23:23)
[2024-09-05] VITALS: BP 143/68; PULSE 86; RESP 19; TEMP 36.83628; O2SAT 100
[2024-09-05 04:00] VITALS: BP 148/70; PULSE 76; RESP 20; TEMP 37.05852; O2SAT 98
[2024-09-05 08:00] VITALS: BP 138/86; PULSE 80; RESP 20; TEMP 36.72516; O2SAT 100
[2024-09-05 08:59] LABS: ANISOCYTOSIS 1+; PLATELET ESTIMATE NORMAL
[2024-09-05 12:00] VITALS: BP 128/79; PULSE 82; RESP 18; TEMP 37.16964; O2SAT 98
[2024-09-05 16:00] VITALS: BP 127/86; PULSE 71; RESP 18; TEMP 36.61404; O2SAT 97
[2024-09-05 20:00] VITALS: BP 126/50; PULSE 75; RESP 19; TEMP 36.44736; O2SAT 97
[2024-09-06] VITALS (11 sets, daily range): BP systolic 105–184; BP diastolic 65–96; PULSE 75–84; RESP 18–22; TEMP 36.3918–37.16964; O2SAT 95–100
[2024-09-06] MEDS: GUAIFENESIN 200MG/10ML SUGAR FREE UDC PO PRN (03:05)
[2024-09-06 13:13] LABS: HEMATOCRIT 27.9 % (42.0-52.0); HEMOGLOBIN 9.1 g/dL (14.0-18.0); MEAN CORPUSCULAR HEMOGLOBIN 30.1 pg (28.0-32.0); MEAN CORPUSCULAR HGB CONC 32.6 g/dL (31.0-37.0); MEAN CORPUSCULAR VOLUME 92.3 fL (80.0-94.0); PLATELET 441 x1000/uL (130-400); RED BLOOD CELL COUNT 3.02 mill/uL (4.7-6.1); RED CELL DISTRIBUTION WIDTH 17.6 % (11.6-14.6); WHITE BLOOD COUNT 15.6 x1000/uL (4.5-11.0)
[2024-09-06 13:20] LABS: POTASSIUM 3.6 mEq/L (3.5-5.1)
[2024-09-06 13:22] LABS: CALCIUM 9.4 mg/dL (8.7-10.4)
[2024-09-06 13:34] LABS: CREATININE 7.1 mg/dL (0.6-1.3)
[2024-09-06] MEDS: PIPERACILLIN/TAZO 3.375G/50ML 50 ML IV SCH (15:50)
[2024-09-07] VITALS: BP 135/58; PULSE 85; RESP 20; TEMP 36.3918; O2SAT 98
[2024-09-07] MEDS: DOCUSATE SODIUM 100MG CAPSULE PO PRN (01:30)
[2024-09-07 04:00] VITALS: BP 116/68; PULSE 80; RESP 20; TEMP 36.50292; O2SAT 96
[2024-09-07 08:00] VITALS: BP 138/86; PULSE 81; RESP 18; TEMP 36.89184; O2SAT 98
[2024-09-07 12:00] VITALS: BP 134/73; PULSE 79; RESP 17; TEMP 36.50292; O2SAT 100
[2024-09-07 16:00] VITALS: BP 129/78; PULSE 80; RESP 22; TEMP 36.44736; O2SAT 100
[2024-09-07] MEDS: LACTULOSE 20G/30ML UDC PO NR (18:12)
[2024-09-07 20:00] VITALS: BP 122/61; PULSE 75; RESP 17; TEMP 36.22512; O2SAT 95
[2024-09-08] VITALS (13 sets, daily range): BP systolic 95–159; BP diastolic 62–84; PULSE 70–88; RESP 16–19; TEMP 36.3918–36.72516; O2SAT 92–100
[2024-09-08 08:19] LABS: BASOPHILS % 1.2 % (0.0-2.0); EOSINOPHILS % 1.4 % (0.0-5.0); HEMATOCRIT. 26.5 % (42.0-52.0); HEMOGLOBIN. 8.8 g/dL (14.0-18.0); LYMPHOCYTES % 9.5 % (20.0-50.0); MEAN CORPUSCULAR HEMOGLOBIN 30.3 pg (28.0-32.0); MEAN CORPUSCULAR HGB CONC 33.1 g/dL (31.0-37.0); MEAN CORPUSCULAR VOLUME 91.6 fL (80.0-94.0); MEAN PLATELET VOLUME 7.9 fl (7.4-10.4); MONOCYTES % 9.4 % (2.0-8.0); NEUTROPHILS % 78.5 % (40.0-76.0); PLATELET 515 x1000/uL (130-400); RED BLOOD CELL COUNT 2.89 mill/uL (4.7-6.1); RED CELL DISTRIBUTION WIDTH 17.4 % (11.6-14.6); WHITE BLOOD COUNT 11.1 x1000/uL (4.5-11.0)
[2024-09-08 08:45] LABS: POTASSIUM 5.2 mEq/L (3.5-5.1)
[2024-09-08 08:46] LABS: CALCIUM 9.3 mg/dL (8.7-10.4)
[2024-09-08 09:48] LABS: CREATININE 10.2 mg/dL (0.6-1.3)
[2024-09-08] MEDS: NA PHOS,M-B/NA PHOS,DI-BA ENEMA 118ML PR NR (15:30)
== END 2024-09-08 18:40 | DRG 870 ==
LOC: ER 08:50 → MICUSO 11:19 → EDBD 11:19 → EDBEDREQ 11:25 → MICUSO 08-28 12:50 → 5EST 09-01 18:48 → 7WST 09-04 11:00 → 8EST 09-07 18:55
PROVIDERS: ADMIT Internal Medicine; ATTEND Internal Medicine
PROC: 0BH17EZ Insertion of Endotracheal Airway into Trachea, Via Natural or Artificial Opening (ICD-10-PCS; principal; 2024-08-27)
PROC: 5A1955Z Respiratory Ventilation, Greater than 96 Consecutive Hours (ICD-10-PCS; 2024-08-27)
PROC: 5A1D70Z Performance of Urinary Filtration, Intermittent, Less than 6 Hours Per Day (ICD-10-PCS; 2024-08-27)
PROC: 05H533Z Insertion of Infusion Device into Right Subclavian Vein, Percutaneous Approach (ICD-10-PCS; 2024-08-29)
PROC: B546ZZA Ultrasonography of Right Subclavian Vein, Guidance (ICD-10-PCS; 2024-08-29)
PROC: 5A1D70Z Performance of Urinary Filtration, Intermittent, Less than 6 Hours Per Day (ICD-10-PCS; 2024-08-29)
PROC: 5A1D70Z Performance of Urinary Filtration, Intermittent, Less than 6 Hours Per Day (ICD-10-PCS; 2024-08-31)
PROC: 5A1D70Z Performance of Urinary Filtration, Intermittent, Less than 6 Hours Per Day (ICD-10-PCS; 2024-09-04)
PROC: 5A1D70Z Performance of Urinary Filtration, Intermittent, Less than 6 Hours Per Day (ICD-10-PCS; 2024-09-06)
PROC: 5A1D70Z Performance of Urinary Filtration, Intermittent, Less than 6 Hours Per Day (ICD-10-PCS; 2024-09-08)
DX: A41.9 Sepsis, unspecified organism (principal); G92.8 Other toxic encephalopathy; J96.01 Acute respiratory failure with hypoxia; N18.6 End stage renal disease; I21.4 Non-ST elevation (NSTEMI) myocardial infarction; I50.33 Acute on chronic diastolic (congestive) heart failure; E87.20 Acidosis, unspecified; E87.1 Hypo-osmolality and hyponatremia; J98.11 Atelectasis; Z99.11 Dependence on respirator [ventilator] status; I13.2 Hypertensive heart and chronic kidney disease with heart failure and with stage 5 chronic kidney disease, or end stage renal disease; N39.0 Urinary tract infection, site not specified; Z20.822 Contact with and (suspected) exposure to COVID-19; E11.649 Type 2 diabetes mellitus with hypoglycemia without coma; D64.9 Anemia, unspecified; E11.22 Type 2 diabetes mellitus with diabetic chronic kidney disease; E83.39 Other disorders of phosphorus metabolism; L84 Corns and callosities; E05.90 Thyrotoxicosis, unspecified without thyrotoxic crisis or storm; E87.5 Hyperkalemia; J44.9 Chronic obstructive pulmonary disease, unspecified; B19.20 Unspecified viral hepatitis C without hepatic coma; L85.3 Xerosis cutis; I25.2 Old myocardial infarction; Z74.01 Bed confinement status; Z99.2 Dependence on renal dialysis; Z78.1 Physical restraint status; Z88.5 Allergy status to narcotic agent; Z91.199 Patient's noncompliance with other medical treatment and regimen due to unspecified reason
CPT/HCPCS: 36415; 36573; 36600; 71045; 80048; 80051; 80061; 80076; 80202; 80305; 81003; 82140; 82375; 82550; 82553; 82607; 82728; 82746; 82805; 82962; 83036; 83540; 83550; 83605; 83735; 84100; 84145; 84439; 84443; 84478; 84484; 85025; 85027; 86705; 86709; 87070; 87340; 87426; 90935; 93005; 93306; 93970; 94002; 94003; 94070; 94640; 94664; 97163; 98960; 99291; A4606; C1725; C1893; J0360; J0610; J0692; J1265; J1630; J1650; J1815; J2003; J2060; J2250; J2470; J2543; J2704; J2920; J3010; J3370; J3490; J7050; Q9957